=== PATIENT | female | born 1950 | race Caucasian/White ===

== ENCOUNTER → 2017-10-09 | Outpatient (CLI) | payer OTHER ==
[~2017-10-09] MED LIST: Ascorbic Acid,Ester- PO; Colace PO; Coumadin,Jantoven PO; DOCUSATE SODIU100 MG PO; Feosol PO; Folvite PO; Glucophage PO; LIPITOR40 MG PO; Miralax, Glycolax PO; NORVASC10 MG PO; Percocet 5/325,Endoc PO; Senokot S,Pericolace PO; TENORMIN25 MG PO; TYLENOL REGULA325 MG PO; Theragran PO; ULTRAM50 MG PO; Ultram PO; Zestril,Prinivil PO; Zofran PO
[2017-10-09 09:48] LABS: HEMATOCRIT 43.6 % (36.0-46.0); MCH 29.9 PG (29.0-34.0); MCV 90.6 FL (83-99); MEAN PLAT.VOLUME 10.7 uM^3 (9.5-12.4); PLATELET COUNT 276 K/uL (156-360); RBC DIS.WIDTH-CV 13.2 % (11.8-14.6); RBC DIS.WIDTH-SD 43.8 % (39-53); RED BLOOD COUNT 4.81 M/uL (3.80-5.20); WHITE BLOOD COUNT 8.8 K/uL (4.1-10.2)
[2017-10-09 09:57] LABS: INTER. NORMALIZED RATIO 1.1; PROTHROMBIN TIME 12.1 SEC (10.2-12.9)
[2017-10-09 09:59] LABS: PTT 31.4 SEC (25-37)
== END | disposition home or self-care (01) ==
LOC: OPR 08:58 → EDSTATUS 09:00
PROVIDERS: Urology
DX: N28.89 Other specified disorders of kidney and ureter (principal); I10 Essential (primary) hypertension; R31.29 Other microscopic hematuria; K43.2 Incisional hernia without obstruction or gangrene; F17.210 Nicotine dependence, cigarettes, uncomplicated; Z85.42 Personal history of malignant neoplasm of other parts of uterus
CPT/HCPCS: 77012; 85027; 85610; 85730; 88305; J3010